=== PATIENT | female | born 1975 | race Hispanic/Latino ===

== ENCOUNTER 2024-09-07 21:41 | Emergency (ER) | payer OTHER ==
[~2024-09-07] VITALS: Ht 162.6 cm; Wt 79.8 kg
[2024-09-07 22:36] LABS: HEMATOCRIT 37.2 % (34.1-44.9); HEMOGLOBIN 12.2 g/dL (11.2-15.7); MCH 29.3 PG (25.6-32.2); MCHC 32.8 g/dL (32.2-35.5); MCV 89.2 fL (79.4-94.8); PLATELET COUNT 272 K/uL (182-369); RBC 4.17 M/uL (3.93-5.22)
[2024-09-07] MEDS ORDERED: PREDNISONE20 MG PO (22:42)
[2024-09-07] MEDS ORDERED: CYCLOBENZAPRINE10 MG PO (22:43)
[2024-09-07] MEDS ORDERED: VALACYCLOVIR1000 MG PO (22:43)
[2024-09-07] MEDS ORDERED: ESCITALOPRAM OX10 MG PO (22:44)
[2024-09-07] MEDS ORDERED: ESTRACE2 MG PO (22:45)
[2024-09-07] MEDS ORDERED: PROGESTERONE100 MG PO (22:45)
[2024-09-07 22:47] LABS: INR 1.01 (0.80-1.30); PROTIME 12.9 Sec (11.2-14.2)
[2024-09-07 22:49] LABS: PARTIAL THROMBOPLASTIN TIME 27.8 Sec (22.9-41.3)
[2024-09-07 22:50] LABS: LYMPHOCYTES, MANUAL DIFF 33; MONOCYTES, MANUAL DIFF 5; NEUTROPHILS, MANUAL DIFF 62
[2024-09-07 23:00] LABS: ALBUMIN 3.6 g/dL (3.4-5.0); ALBUMIN/GLOBULIN RATIO 1.03 (1.1-2.4); ANION GAP 9.8 (7-21); BILIRUBIN, TOTAL 0.3 mg/dL (0.2-1.0); BUN/CREATININE RATIO 21.33 (6.0-28.6); CALCIUM 8.8 mg/dL (8.5-10.1); CREATININE, SERUM 0.75 mg/dL (0.55-1.02); POTASSIUM 3.8 mmol/L (3.5-5.1); PROTEIN, TOTAL 7.1 g/dL (6.4-8.2); TSH, 3RD GENERATION 1.004 uIU/mL (0.358-3.740)
--- OUTSIDE RECORDS SUMMARY | 2024-09-07 23:09 | XMS ---
PreManage Notification: PERLA BERUMEN [employer] Events No recent Security Events currently on file CRITERIA MET - [facility] - 2 Visits in 30 Days CARE PROVIDERS [facility]: [facility] ([facility]) PHONE: [phone] ANYA MORAN [facility] Current PHONE: Unknown Cierra has no Care Guidelines for this patient. E.Maricruz VISIT COUNT (12 MO.) [address] TOTAL 3 NOTE: Visits indicate total known visits. ED/UCC VISIT TRACKING (12 MO.) 09/07/2024 21:42 [facility] TYPE: Emergency COMPLAINT: - FACIAL SWELLING 09/04/2024 13:20 [facility] TYPE: Emergency DIAGNOSES: - Hooper's palsy - PAIN LEFT EYE AND SIDE OF FACE 04/21/2024 14:59 [facility] TYPE: Emergency DIAGNOSES: - Muscle spasm of back - Other specified noninflammatory disorders of vagina - HEADACHE NECK PAIN INPATIENT VISIT TRACKING (12 MO.) No inpatient visits to display in this time frame [email or web address]
[2024-09-08 00:39] VITALS: BP 146/86
[2024-09-09 19:48] LABS: LYME VLSE1/PEPC10 ABS, ELISA 0.18 IV (<=0.90)
== END 2024-09-08 00:40 | disposition home or self-care (01) ==
LOC: ED 21:41
PROVIDERS: Internal Medicine
DX: G51.0 Bell's palsy (principal)
CPT/HCPCS: 36415; 70450; 70496; 70498; 80053; 84443; 84703; 85025; 85610; 85730; 86618; 99284-25; Q9967